=== PATIENT | female | born 1985 | race Two or more races ===

== ENCOUNTER 2024-10-13 00:16 | Emergency (ER) | payer OTHER ==
[~2024-10-13] VITALS: Ht 157.5 cm; Wt 66.7 kg
[~2024-10-13 00:16] MED LIST: CIPRO500 MG PO; KETO10TA2 PO; NEURONTIN300 MG PO; URIN D.S. TABLE1 TAB PO
[2024-10-13] MEDS ORDERED: 0.9 % SODIUM CHLORIDE 1,000 ML IV STA (01:25)
[2024-10-13] MEDS ORDERED: MEPERIDINE HCL/PF 25 MG/ML VIAL IM STA (01:26)
[2024-10-13] MEDS ORDERED: PROMETHAZINE HCL 50 MG/ML AMPUL IM STA (01:27)
[2024-10-13] MEDS ORDERED: ONDANSETRON HCL 2 MG/ML VIAL IV STA (01:27)
[2024-10-13] MEDS ORDERED: FAMOtidine 10 MG/ML (4ML VIAL) IV PUSH STA (01:28)
[2024-10-13] MEDS ORDERED: HYOSCYAMINE SULFATE 0.125 MG TAB.SUBL SL ONE (01:30)
[2024-10-13] MEDS ORDERED: PROMETHAZINE HCL 25 MG/ML AMPUL ONE (01:46)
[2024-10-13] MEDS ORDERED: FAMOTIDINE/PF 20 MG/2 ML VIAL ONE (01:46)
[2024-10-13] MEDS ORDERED: HYOSCYAMINE SULFATE 0.125 MG TAB.SUBL ONE (01:46)
[2024-10-13] MEDS ORDERED: ONDANSETRON HCL 2 MG/ML VIAL ONE (01:46)
[2024-10-13 02:12] LABS: HEMATOCRIT 37.1 % (36.0-45.00); HEMOGLOBIN 12.5 g/dL (12.0-15.00); MEAN CELL VOLUME 83.3 fL (80.00-100.00); MEAN CORPUSCULAR HEMOGLOBIN 28.2 pg (27.00-32.0); MEAN CORPUSCULAR HGB CONC 33.8 g/dl (32.0-36.0); RED BLOOD COUNT 4.45 M/uL (4.00-6.00); RED CELL DISTRIBUTION WIDTH 14.1 % (11.5-14.5)
[2024-10-13 02:15] LABS: PLATELET COUNT 101 K/uL (150-450)
[2024-10-13 02:30] LABS: CALCIUM 8.7 mg/dL (8.5-10.1); CREATININE SERUM 0.6 mg/dL (0.55-1.02); GFR 111.88; POTASSIUM 4.2 mEq/L (3.5-5.1)
[2024-10-13 02:32] LABS: INR 1.04; PARTIAL THROMBOPLASTIN TIME 26.6 SECONDS (22.0-34.0); PROTHROMBIN TIME 11.3 SECONDS (9.0-11.5)
== END 2024-10-13 05:03 | disposition home or self-care (01) ==
LOC: ER 00:18
DX: K29.70 Gastritis, unspecified, without bleeding (principal); R10.11 Right upper quadrant pain; R10.9 Unspecified abdominal pain; Z88.1 Allergy status to other antibiotic agents